=== PATIENT | female | born 1975 | race Caucasian/White ===

== ENCOUNTER 2022-05-29 06:40 | Emergency (ER) | payer OTHER ==
[~2022-05-29] VITALS: Ht 160 cm; Wt 68.0 kg
[2022-05-29 07:12] VITALS: BP_SYST 148
[2022-05-29] MEDS ORDERED: ACETAMINOPHEN 500 MG TABLET PO ONE (07:30)
[2022-05-29 08:29] VITALS: BP_SYST 132
== END 2022-05-29 08:32 | disposition home or self-care (01) ==
LOC: SED 06:40
DX: S00.83XA Contusion of other part of head, initial encounter (principal); Z79.899 Other long term (current) drug therapy; W22.8XXA Striking against or struck by other objects, initial encounter; Y93.89 Activity, other specified; Y92.89 Other specified places as the place of occurrence of the external cause; Y99.8 Other external cause status
CPT/HCPCS: 99282